=== PATIENT | female | born 1960 | race Caucasian/White ===

== ENCOUNTER → 2020-11-04 15:13 | Outpatient (CLI) | payer BC, SELFPAY | PROVIDERS: Visit Provider Family Medicine | DX: N39.0 Urinary tract infection, site not specified (principal) | CPT/HCPCS: 87086 ==

== ENCOUNTER → 2021-02-02 17:45 | Outpatient (CLI) | payer BC, SELFPAY ==
[2021-02-02 18:23] LABS: Basophils % 0.4 % (0.1-2.0); Eosinophils % 0.6 % (0.1-12.0); Hematocrit 42.2 % (37.0-47.0); Hemoglobin 14.3 g/dL (12.2-16.2); Lymphocytes % 30.5 % (10-50); Mean Corpuscular HGB Conc 33.9 g/dL (31.8-35.4); Mean Corpuscular Hemoglobin 30.5 pg (27.0-31.2); Mean Corpuscular Volume 89.9 fl (81-99); Mean Platelet Volume 7.6 fl (7.4-10.4); Monocytes # 0.3 K/mm3 (0.1-1.0); Monocytes % 4.5 % (1.7-9.3); Neutrophils # 4.2 K/mm3 (1.8-7.8); Platelet Count 306 K/mm3 (142-424); Red Blood Count 4.69 M/mm3 (4.20-5.40); Red Cell Distribution Width 12.9 % (11.5-17.5); White Blood Count 6.6 K/mm3 (4.8-10.8)
[2021-02-02 19:02] LABS: Alanine Aminotransferase 26 U/L (12-78); Albumin Level 4.5 g/dl (3.5-5.0); Albumin/Globulin Ratio 1.7 (1.1-1.8); Alkaline Phosphatase 81 U/L (38-126); Anion Gap 15.9 mEq/L (5-15); Aspartate Amino Transferase 28 U/L (14-36); Bilirubin,Total 0.4 mg/dl (0.2-1.3); Blood Urea Nitrogen 11 mg/dl (7-17); Carbon Dioxide 25 mmol/L (22.0-30.0); Chloride 100 mmol/L (98-107); Chol/HDL Ratio 4.7 (1-3.5); Cholesterol 261 mg/dl (140-200); Estimated Glomerular Filt Rate 101 ml/min (>60); GFR (African American) 123 ML/MIN (>60); Globulin 2.7 g/dL (1.3-3.2); Glucose 149 mg/dl (74-100); HDL Cholesterol 55 mg/dl (40-60); Potassium 3.9 mmoL/L (3.5-5.1); Sodium 137 mmol/L (136-145); Total Protein,Serum 7.2 g/dl (6.3-8.2); Triglycerides 269 mg/dl (30-150); VLDL Cholesterol 54 mg/dL (0-40)
[2021-02-02 19:14] LABS: Direct LDL Cholesterol 174.65 mg/dL (100-129)
[2021-02-02 19:20] LABS: T4 (Thyroxine) 12.3 ug/dl (5.53-11.0)
[2021-02-02 19:33] LABS: Thyroid Stimulating Hormone 0.83 uIU/mL (0.465-4.68)
== END ==
PROVIDERS: Visit Provider Family Medicine
DX: E03.9 Hypothyroidism, unspecified (principal); E78.5 Hyperlipidemia, unspecified; I10 Essential (primary) hypertension
CPT/HCPCS: 80053; 80061; 84436; 84443; 85025

== ENCOUNTER → 2021-02-17 13:55 | Outpatient (CLI) | payer BC, SELFPAY ==
[2021-02-17 14:42] LABS: Hemoglobin A1C 5.5 % (4.0-6.0)
== END ==
PROVIDERS: Visit Provider Family Medicine
DX: R73.9 Hyperglycemia, unspecified (principal)
CPT/HCPCS: 83036

== ENCOUNTER → 2023-04-25 23:49 | Outpatient (CLI) | payer BC, SELFPAY ==
[2023-04-25 19:17] LABS: Basophils % 0.4 % (0.1-2.0); Eosinophils # 0.1 K/mm3 (0.0-0.4); Hematocrit 45.1 % (37.0-47.0); Hemoglobin 14.5 g/dL (12.2-16.2); Lymphocytes # 1.8 K/mm3 (0.7-4.5); Lymphocytes % 32.8 % (10-50); Mean Corpuscular HGB Conc 32.2 g/dL (31.8-35.4); Mean Corpuscular Hemoglobin 30.2 pg (27.0-31.2); Mean Platelet Volume 9.4 fl (7.4-10.4); Monocytes # 0.3 K/mm3 (0.1-1.0); Monocytes % 5.4 % (1.7-9.3); Neutrophils # 3.3 K/mm3 (1.8-7.8); Neutrophils % 60.4 % (37.0-80.0); Platelet Count 320 K/mm3 (142-424); Red Blood Count 4.79 M/mm3 (4.20-5.40); Red Cell Distribution Width 13.1 % (11.5-17.5); White Blood Count 5.4 K/mm3 (4.8-10.8)
[2023-04-25 19:24] LABS: Alanine Aminotransferase 23 U/L (12-78); Albumin Level 4.5 g/dl (3.5-5.0); Albumin/Globulin Ratio 1.6 (1.1-1.8); Alkaline Phosphatase 70 U/L (38-126); Anion Gap 13.4 mEq/L (5-15); Aspartate Amino Transferase 29 U/L (14-36); Bilirubin,Total 0.5 mg/dl (0.2-1.3); Blood Urea Nitrogen 13 mg/dl (7-17); Calcium 9.2 mg/dl (8.4-10.2); Carbon Dioxide 29 mmol/L (22.0-30.0); Chloride 102 mmol/L (98-107); Cholesterol 251 mg/dl (140-200); Estimated Glomerular Filt Rate 101 ml/min (>60); GFR (African American) 122 ML/MIN (>60); Globulin 2.9 g/dL (1.3-3.2); Glucose 96 mg/dl (74-100); HDL Cholesterol 50 mg/dl (40-60); Potassium 4.4 mmoL/L (3.5-5.1); Sodium 140 mmol/L (136-145); Total Protein,Serum 7.4 g/dl (6.3-8.2); Triglycerides 173 mg/dl (30-150); VLDL Cholesterol 35 mg/dL (0-40)
[2023-04-25 19:35] LABS: Direct LDL Cholesterol 154.35 mg/dL (100-129)
[2023-04-25 19:55] LABS: Thyroid Stimulating Hormone 1.39 uIU/mL (0.465-4.68)
[2023-05-04 00:08] LABS: 1,25 Dihydroxy Vitamin D 75 pg/mL (.); 1,25-Dihydroxy, Vitamin D-2 <10 pg/mL (.); 1,25-Dihydroxy, Vitamin D-3 72 pg/mL (.)
== END ==
PROVIDERS: PCP Family Medicine; Visit Provider Family Medicine
DX: E78.5 Hyperlipidemia, unspecified (principal); E67.3 Hypervitaminosis D; Z79.899 Other long term (current) drug therapy
CPT/HCPCS: 80053; 80061; 82652; 84443; 85025

== ENCOUNTER 2024-02-22 10:20 | Outpatient (CLI) | payer MEDICARE, SELFPAY ==
[2024-02-22 19:05] LABS: Chol/HDL Ratio 4.1 (1-3.5); Cholesterol 209 mg/dl (140-200); HDL Cholesterol 51 mg/dl (40-60); Triglycerides 243 mg/dl (30-150); VLDL Cholesterol 49 mg/dL (0-40)
[2024-02-22 19:16] LABS: Direct LDL Cholesterol 124.66 mg/dL (100-129)
== END 2024-02-22 23:59 | disposition home or self-care (01) ==
LOC: LAB.DROPOF 02-23 08:53
PROVIDERS: PCP Family Medicine; Visit Provider Family Medicine
DX: E78.5 Hyperlipidemia, unspecified (principal)
CPT/HCPCS: 80061

== ENCOUNTER 2024-11-21 11:07 | Outpatient (CLI) | payer MEDICARE, SELFPAY | END 2024-11-21 23:59 | disposition home or self-care (01) | LOC: LAB.DROPOF 11-22 10:59 | PROVIDERS: PCP Nurse Practitioner; Visit Provider Nurse Practitioner | DX: R35.0 Frequency of micturition (principal) | CPT/HCPCS: 87086 ==

== ENCOUNTER 2025-04-08 07:56 | Day surgery (SDC) | payer MEDICARE, SELFPAY ==
[2025-04-04 15:02] VITALS: BMI 23.0
[2025-04-08] VITALS (7 sets, daily range): BP systolic 106–143; BP diastolic 57–81; PULSE 62–78; RESP 18; TEMP 36.1–36.6; O2SAT 96–100
--- NOTE | 2025-04-08 08:27 | EXP.HP ---
History of Present Illness *Admission Date: 04/08/25 *History of present illness: Mrs. Borrego is a 64-year-old female who is here for screening colonoscopy. The patient's last colonoscopy was more than a decade ago. The examination is deemed medically necessary for screening colonoscopy. The patient has been seen, interviewed and examined prior to the procedure by both myself and the anesthesia provider. [facility] Disclaimer: The information contained in this section may have been updated after the patient was seen, as this information can be updated by other users. Medical History (Updated 04/08/25 @ 09:53 by Aaron Pitts II, MD) Hyperlipemia Hypothyroid Hypertension Urinary frequency Anxiety Surgical History History of thyroid surgery Family History Mother Cancer Social History Smoking Status: Former smoker years smoked: 5 smoking status stop date: 1987 alcohol intake: never substance use type: denies use current occupational status: retired Travel in the last 8 weeks?: None household members: spouse housing: house Have you lived/traveled outside US in past 30 days?: No Contact w/someone who lives/traveled outside US past 30 days?: No Exposure to someone with infectious disease in past 14 days?: No Do you have a fever (greater than 100.4 F or 38 C)?: No Have you tested positive for COVID-19?: No Exposed to someone with COVID-19 in past 14 days?: No Do you have a sore throat?: No Do you have a cough?: No Do you have any weakness?: No Do you have any diarrhea?: No Are you experiencing any unusual bleeding?: No Do you have any muscle aches/pain?: No Do you have any abdominal pain?: No Are you experiencing loss of taste or smell?: No Other Medical History Have you received the Pneumonia Vaccine: No Review of Systems Review of Systems Review of systems (narrative): Negative *Cardiovascular Comments: Negative *Gastrointestinal Comments: Negative *Genitourinary Comments: Negative *Musculoskeletal Comments: Negative *Neurologic Comments: Negative Meds Home Medications and Allergies Home Medications ?Medication ?Instructions ?Recorded ?Confirmed ?Type cholecalciferol (vitamin D3) 125 125 mcg PO DAILY #90 caps 04/25/23 04/08/25 Rx mcg (5,000 unit) capsule metoprolol succinate 50 mg 50 mg PO DAILY #90 tabs 04/25/23 04/08/25 Rx tablet,extended release 24 hr (Toprol XL) alendronate 70 mg tablet 70 mg PO WEEKLY 02/22/24 04/08/25 History cyanocobalamin (vitamin B-12) 1,000 mcg PO QDAY 02/22/24 04/08/25 History 1,000 mcg capsule rivastigmine 9.5 mg/24 hour 9.5 mg topical DAILY 11/21/24 04/08/25 History transdermal patch (Exelon Patch) clobetasol 0.05 % topical cream 1 applic topical DAILY #45 grams 01/09/25 04/08/25 Rx levothyroxine 75 mcg tablet 75 mcg PO DAILY 04/04/25 04/08/25 History (Synthroid) ezetimibe 10 mg tablet (Zetia) 10 mg PO WEEKLY 04/08/25 04/08/25 History pantoprazole 40 mg tablet,delayed 40 mg PO DAILY PRN Acid Reflux 04/08/25 04/08/25 History release (Protonix) rosuvastatin 5 mg tablet (Crestor) 5 mg PO .twice weekly Cholesterol 04/08/25 04/08/25 History venlafaxine 75 mg capsule,extended 75 mg PO BID 04/08/25 04/08/25 History release 24 hr (Effexor XR) New Prescriptions to Start Prescriptions: Allergies Allergy/AdvReac Type Severity Reaction Status Date / Time atorvastatin (From Lipitor) Allergy Nausea Verified 04/08/25 08:35 Cephalosporins Allergy Nausea Verified 04/08/25 08:35 Penicillins Allergy Nausea Verified 04/08/25 08:35 azithromycin AdvReac Nausea Verified 04/08/25 08:35 Exam *Routine HEENT Exam Head: Present normocephalic Eye: Present EOMI and PERRL ENT: Present mucous membranes moist *Routine Neck Exam Neck: Present supple *Routine Respiratory Exam Respiratory: Present CTA bilaterally *Routine Cardiovascular Exam Cardiovascular: Present RRR *Routine Abdominal Exam Abdominal: Present soft and normoactive bowel sounds; Absent tenderness *Routine Rectal Exam Rectal:: deferred *Routine Genitalia Exam Genitalia:: deferred *Routine Extremities Exam Extremities: Absent cyanosis, clubbing or edema *Routine Skin Exam Skin: Present warm; Absent rash *Routine Neurological Exam Neurological: Present alert and oriented X3 Assessment and Plan *Assessment and plan (1) Screening for colon cancer: Status: Acute Category: Medical Code(s): Z12.11 - Encounter for screening for malignant neoplasm of colon (2) Submucosal colonic leiomyoma: Status: Acute Category: Medical Code(s): D21.4 - Benign neoplasm of connective and other soft tissue of abdomen Plan A/P: 1. Screening for colon cancer is the preprocedural diagnosis. The patient's last colonoscopy was more than a decade ago. She does have a history of a colonic leiomyoma the patient will be anesthetized/sedated using MAC sedation. The patient has been seen and examined. Cardiac and lung assessment prior to the examination is stable. Proceed with planned screening colonoscopy.
--- NOTE | 2025-04-08 09:31 | P.PNANES_ITS ---
[facility] Disclaimer: The information contained in this section may have been updated after the patient was seen, as this information can be updated by other users. Medical History (Updated 04/08/25 @ 08:29 by Aaron Pitts II, MD) Hyperlipemia Hypothyroid Hypertension Urinary frequency Anxiety Surgical History History of thyroid surgery Family History Mother Cancer Social History Smoking Status: Former smoker years smoked: 5 smoking status stop date: 1987 alcohol intake: never substance use type: denies use current occupational status: retired Travel in the last 8 weeks?: None household members: spouse housing: house Have you lived/traveled outside US in past 30 days?: No Contact w/someone who lives/traveled outside US past 30 days?: No Exposure to someone with infectious disease in past 14 days?: No Do you have a fever (greater than 100.4 F or 38 C)?: No Have you tested positive for COVID-19?: No Exposed to someone with COVID-19 in past 14 days?: No Do you have a sore throat?: No Do you have a cough?: No Do you have any weakness?: No Do you have any diarrhea?: No Are you experiencing any unusual bleeding?: No Do you have any muscle aches/pain?: No Do you have any abdominal pain?: No Are you experiencing loss of taste or smell?: No [facility] Anesthesia Checklist Patient Identification Patient Identification: Arm Band Structural Data Admitted From: Home Planned Operative Procedure/s: Colonoscopy Consent for Planned Operative Procedure(s) Verified: Yes Verified Documents: Surgical Consent and History and Physical NPO Status Verified Time NPO: 05:30 (finished prep) Additional verifications Anesthesia Reactions: No Airway Assessment Mallampati Score:: Class II C-Spine Mobility Assessed: Yes TMJ Mobility Assessed: Yes Dentition: Good Dentition Neurological Assessment Level of Consciousness: Awake, Alert and Appropriate Anesthesia Plan Anesthesia Risk discussed: Yes Anesthesia Plan: Verified ASA Class: II Anesthesia Type: MAC
--- NOTE | 2025-04-08 09:54 | P.PCN_ITS ---
[facility] Procedure Note Date: 04/08/25 Time: 10:07 Procedure Note:: Colonoscopy Procedure Report: Colonoscopy with cold snare polypectomy Endoscopist: Aaron Pitts II, MD Referring physician: Neil Rubin MD Date of Procedure: April 08, 2025 Equipment: Olympus [id number] adult colonoscope Sedation: MAC sedation Indication: Mrs. Borrego is a 64-year-old female who is here for screening colonoscopy. Her last colonoscopy was more than a decade ago. The patient does state that she had a colonic leiomyoma years ago. She reports no rectal bleeding, abdominal pain, weight loss or change in bowel habits. She reports no family history of colon cancer. Procedure: Prior to the procedure, a history and physical exam was performed, and patient's medications and allergies were reviewed. The risks, benefits and alternatives of the sedation and procedure were discussed with the patient. All questions were answered and informed consent was obtained. The patient was brought to the procedure room. Patient identification and proposed procedure were verified by the physician and the nurse. The patient was placed in a left lateral decubitus position and the scope was passed under direct vision. Throughout the procedure, the patient's blood pressure, pulse, and oxygen saturations were monitored continuously. The colonoscopy was accomplished without difficulty. The patient tolerated the procedure well. Findings: On digital rectal examination there was normal rectal tone. There were no external hemorrhoids. The colonoscope was introduced through the anal canal to the rectum and advanced to the cecum. The ileocecal valve and appendiceal orifice were identified. The scope was advanced a short distance into the ileum which appeared grossly normal. The scope was then withdrawn into the colon. The cecum, ascending and transverse colon and mucosa were grossly normal. There were 3 polyps (descending x 1 (4 mm) and rectosigmoid x 2 (3 and 4 mm)). These were all removed via cold snare polypectomy. There were scattered diverticuli throughout the descending and sigmoid colon (LEFT colon). The rectum itself was normal. Upon retroflexion within the rectum there were grade 1-2 internal hemorrhoids. The preparation was excellent throughout with [place] Preparation Score of 9. The cecal time was 12 minutes. Impression: 1. Diminutive colonic polyps x 3 2. Left-sided diverticulosis 3. Grade 1-2 internal hemorrhoids Plan: I will follow-up the polyp histology and recommend repeat surveillance colonoscopy again in 5 to 10 years based upon the pathology. I would encourage psyllium bulking fiber supplementation on a maintenance basis.
== END 2025-04-08 11:10 | disposition home or self-care (01) ==
PROVIDERS: PCP Family Medicine; Visit Provider Internal Medicine Gastroenterology
PROC: 0DJD8ZZ Inspection of Lower Intestinal Tract, Via Natural or Artificial Opening Endoscopic (ICD-10-PCS; CPT 45378; principal; 2025-04-08 09:30)
DX: Z12.11 Encounter for screening for malignant neoplasm of colon (principal); D12.5 Benign neoplasm of sigmoid colon; D12.8 Benign neoplasm of rectum; K57.90 Diverticulosis of intestine, part unspecified, without perforation or abscess without bleeding; K64.0 First degree hemorrhoids; K64.1 Second degree hemorrhoids; E78.5 Hyperlipidemia, unspecified; I10 Essential (primary) hypertension; E03.9 Hypothyroidism, unspecified; Z87.891 Personal history of nicotine dependence; Z88.1 Allergy status to other antibiotic agents; Z88.8 Allergy status to other drugs, medicaments and biological substances; Z79.899 Other long term (current) drug therapy
CPT/HCPCS: 45385; J2003; J2704

== ENCOUNTER 2025-05-02 09:48 | Outpatient (CLI) | payer MEDICARE, SELFPAY ==
--- OUTSIDE RECORDS SUMMARY | 2017-03-20 20:00 | XMS_ITS | Continuity of Care Document ---
Author Organization [facility] Address [address] [place] [address] Phone Care Team Providers Care Test Preparer Name Role Phone Taras Peters MD Unavailable Unavailable Procedures Procedure Date Foot sidney/prepreg composite Beltran's Ft Plate Office/outpatient visit,[facility] 2016 X-ray exam of foot, complete X-ray exam of foot, complete Advance Directives Directive Yes / No Effective Date File Name No Information Encounters Encounter Description Practice Location Reason(s) For Visit Diagnoses Date Provider Providers Copied on Encounter [facility], [facility] [address] [place], [place], [facility], tel:[phone] 00 [facility] No Information 7 Fran Grajeda. [address], [place], [id number] , [place]. tel:[phone] [facility], [facility] [address] [place], [place], [facility], tel:[phone] 00 [facility] No Information 7 Fran Brown [address], [place], [id number] , [place]. tel:[phone] Office/outpat ient visit,[facility], [facility] [address] [place], [place], [facility], tel:[phone] [facility] No Information 7 Fran Grajeda. [address] [place], [place], [place], [id number] , [place]. tel:[phone] Family History Family Member Type Diagnosis Age At Onset No Information Payers Payer name Insurance type Covered constitution party ID Authoriza tion(s) No Information Social History Type Description Quantity Date Captured Comments Sex Female Smoking Status No Information Chief Complaint And Reason For Visit No Information Reason For Referral Reason For Referral No Information History Of Present Illness Encounter Date Complaint History Of Prese nt Illness No Information Functional Status Date Functional Assessmen t No Information Instructions Date Instruction Additional Infor mation No Information Assessments Type Assessment Date No Information Patient Care Teams Name Effective Dates (start - stop) Status Members No Information
--- OUTSIDE RECORDS SUMMARY | 2024-03-17 05:00 | XMS_ITS ---
Author Organization [facility] Address [address] [place] [address] Care Team Providers Care Sales Service Assistant Name Role Phone Cindy Plata Unavailable [phone] Migration, Provider Unavailable Unavailable Allergies Allergen (clinical drug ingredient) Drug/Non Drug Allergy documented on EMR Reaction Allergy Type Onset Date Status Medications: CEPHALOSPORINS (uncoded) Unspecified Allergy Active Substance with penicillin structure and antibacterial mechanism of action (substance) Medications: PENICILLINS (uncoded) Unspecified Allergy Active Medications: Valium (uncoded) Unspecified Allergy Active Medications Medication SIG (Take, Route, Fr equency, Duration) Notes Start Date End Date Status Metoprolol Succinate ER 05/27/2017 Active Venlafaxine HCl ER 04/27/2017 Active Protonix 1 tablet oral QD Act olive Synthroid 05/23/2017 Active Social History Tobacco Use: Social History Observation Description Date Smoking Status WARNING: Information temporarily unavailable Sex Assigned At : Social History Observation Description Sex Assigned At Female Social History Drugs/Alcohol: Social Info Question Answer Notes Alcohol Screen Did you have a drink containing alcohol in the past year? Never Household: Social Info Question Answer Notes Household Marital status: Tobacco Use: Social Info Question Answer Notes Tobacco Control (Standard) Tobacco use: Former Additional Details Category Social Info Options Details Miscellaneous: Exercise: Heavy Amount of Exercise (4 or more times weekly) Occupation: Homemaker Travel outside of the [place]: Travel History: Uses seat belts Encounters Encounter Location Date Provider Diagnosis [facility] [address] [place] [address] 03/17/2024 Provider Migration Plan Of Treatment No Information Progress Notes * Aminata BORREGO TDOB:1960 (64 yo F)Acc No.[id number]:03/17/2024 Patient: Aminata ESCOBAR :1960 A ge:63 Y S ex:Female Address:[facility] [place], [address] Subjective: * Chief Complaints: * Medical History: 7 [place]: Cholesterol Screen - Yes 2016 wnl 7 [place]: Colonoscopy/Sigmoidoscopy - Yes 2013 poylps 7 [place]: Sexually active - Yes 7 [place]: Self breast exam- yes 7 [place]: Dairy Product Use - Yes 7 [place]: Mammogram 2017 ok; 09/17/19 Endometriosis High blood pressure Thyroid disorder High cholesterol Bowel trouble Anxiety Depression *NO SIGNIFICANT GENETIC HISTORY FHQ administered - negative Vitamin D3 take 2 capsules by oral route daily. Ezetimibe Rosuvastatin * OB History: P regnancy History (GPA) T otal Pregnancies 6 , F ull Term 2 , P remature?0, A B. Induced 0 , A B. Spontaneous 4 , E ctopics 0 , M ultiple Births 0 , L iving 2 . G P G ravida: 6 , P sara: 2 . P regnancy # 1: B irthDate :07/03[birth year]1988 BirthLbs :7 Comment : Weight: 7 DeliveryType :Vaginal GA :38 LaborLength :8 PTL :N Sex :M. P regnancy # 2: B irthDate :12/26/1989 BirthLbs :9 Comment : Weight: 9 DeliveryType :Vaginal GA :37 PTL :N Sex :M. * Surgical History: Breast biopsy section Laparoscopy Thyroidectomy-partial right * Family History: F amily History Verified.. Aunt: Breast Cancer, family HX, Father: Asthma, Diabetes Mellitus, Type Unspecified, Family history of thyroid disease, Hypertension, Benign Essential, Hypercholesterolemia (Isolated), Mother: Pancreatic Neoplasm, Malignant, Hypercholesterolemia (Isolated), Anxiety Disorder, Generalized. * Social History: T obacco Use: T obacco Control (Standard) T obacco use: F ormer. D rugs/Alcohol: A lcohol Screen D id you have a drink containing alcohol in the past year? N ever.? M iscellaneous: E xercise: Heavy Amount of Exercise (4 or more times weekly). Occupation: Homemaker. Travel outside of the [place]: Travel History: Uses seat belts. H ousehold: H ousehold M arital status: . * Medications: T akingVenlafaxine HCl ER Synthroid Protonix 1 tablet oral QD Metoprolol Succinate ER Taking Venlafaxine HCl ER Taking Synthroid Taking Protonix 1 tablet oral QD Taking Metoprolol Succinate ER * Allergies: M edications: PENICILLINS: Unspecified - AllergyMedications: CEPHALOSPORINS: Unspecified - AllergyMedications: Valium: Unspecified - AllergyyesAllergies Verified. * * Date:
--- OUTSIDE RECORDS SUMMARY | 2025-04-01 09:00 | XMS_ITS | Encounter Summary ---
Author Organization [facility] Address [address] [place] [id number] Care Team Providers Care Beef Specialist Name Role Phone Alexis Rubin MD Primary Care Provider [phone] Source Comments This information has been disclosed to you from confidential records protectfrom disclosure by state law. You shall make no further disclosure of thisinformation without the specific, written, and informed release of theindividual to whom it pertains, or as otherwise permitted by law. A generalauthorization for the release of medical or other information is not sufficientfor the purposes of the release of HIV test results or diagnoses. [id number] Health Encounter Details Date Type Department Care Team (Late st Contact Info) Description 04/01/2025 9:00 AM EDT Office Visit [facility] Neurology at [address] [place] [address] Mike Cisneros MD [address] [employer] [facility] [address] [place] [address] Maryanne Mario MD [address] [place] [address] Mild early onset Alzheimer's dementia, unspecified whether behavioral, psychotic, or mood disturbance or anxiety (CMS-HCC) (Primary Dx); VARUN (obstructive sleep apnea) Social History Tobacco Use Types Packs/Day Years Used Date Smoking Tobacco: Former Cigarettes Q uit: 06/16/1989 Tobacco Cessation:Counseling Given: Not Answered Comments:06/05/2008 Alcohol Use Standard Drinks/Week Comments No 0 (1 standard drink = 0.6 oz pur e alcohol) 06/05/2008 PHQ-2 Answer Date Recorded PHQ-2 Total Score 0 09/18/2024 Yearly Questionnaire Answer Date Record ed Do you need any assistance w ith obtaining housing, meals, medication, transportation or medical equipment? No 09/18 Assistance needed for: Not on file 5 Yearly Questionnaire Answer Date Record ed Do you need any assistance w ith obtaining housing, meals, medication, transportation or medical equipment? No 09/18 Assistance needed for: Not on file Yearly Questionnaire Answer Date Record ed Do you need any assistance w ith obtaining housing, meals, medication, transportation or medical equipment? No 09/18 Assistance needed for: Not on file 5 Comments No Sex and Gender Information Value Date Recorded Sex Assigned at Not on file Legal Sex Female 4:08 PM EST Gender Identity Not on file Sexual Orientation Not on file documented as of this encounter Last Filed Vital Signs Vital Sign Reading Time Taken Comments Blood Pressure 155/80 04/01/2025 10:16 AM EDT Pulse 78 04/01/2025 10:16 AM EDT Temperature - - Respiratory Rate - - Oxygen Saturation 98% 04/01/2025 10:16 AM EDT Inhaled Oxygen Concentration 98% 04/01/2025 1 0:16 AM EDT Weight 63 kg (139 lb) 04/01/2025 10:16 AM EDT Height - - Body Mass Index 25.84 09/26/2024 10:00 AM EST documented in this encounter Patient Instructions * Patient Instructions* Maryanne Mario MD - 04/01/2025 9:00 AM EDT Plan: - Continue rivastigimine 9.5mg daily patch - Continue CPAP for sleep apnea Sleep medicine appointment in June - evaluation - Consider adding a new medication to further help anxiety The medication I would think of is buspirone (Buspar) - information attached Talk about this idea with Dr. Rubin as well It can increase the venlafaxine levels so we may want to make adjustments Things you can do to keep your brain healthy: Regular physical exercise (at least 30 minutes a day where you get your heart rate up) A healthy diet (like the Mediterranean or MIND diet) Regular socialization Cognitive activity - this needs to be something that you enjoy doing. If it feels like a chore or homework, it is not providing you the same kind of benefits as something that brings you azeem. This can be all kinds of things such as puzzles, board games, reading, learning an instrument, learning a language, art, dance, etc. Good sleep. It is important to practice good sleep habits and to treat sleep disorders if they are present. Reduce cerebrovascular risk factors. Make sure you are working with your primary care doctor to ensure blood pressure, cholesterol, and blood sugar are under good control. Recommendations for preventing/improving Exelon patch skin irritation: 1.) Follow a regular rotation schedule for the patch and wash the area well with soap and water ONLY (no rubbing alcohol, hydrogen peroxide, etc) 2.) Use a lipid-based emollient for irritant dermatitis such as Aquaphor or Eucerin (most common rash, only in the area where the patch was placed) or pre- and post-treatment topical corticosteroids for allergic dermatitis (spreads beyond the area of the patch) 3.) Minimize the use of harsh soaps 4.) Avoid recently shaven or damaged areas of skin 5.) Carefully remove the patch after use Social work contact: Social work support to you and your family ANYTIME that you have concerns. Please don't hesitate to contact Urszula Henry at: [phone] [email or web address] * Attachments The following attachments cannot be sent through Care Everywhere. * Buspirone Tablets (Belarusian) documented in this encounter Progress Notes * Maryanne Mario MD - 04/01/2025 9:00 AM EDT Images from the original note were not included. [facility] Neurology Department Behavioral Neurology [facility] - Return Visit Subjective HPI: Aminata Borrego is a 64 y.o. White or R handed female with 14 years of education and pertinent PMH of hypothyroidism, anxiety, depression, hypertension, hyperlipidemia presenting for follow up of Alzheimers disease diagnosed by me in 05/2024 via FDGPET and serum labs. The patient firstdeveloped symptoms in 2021, described as repeating questions/stories and word finding difficulties.She is accompanied to this visit by , Chris, who provides collateral information. Last visit: At our last visit, diagnosis of AD and VARUN - started on rivastigmine. Interval history: Since our last visit, Slight decline noticed Rivastigmine is tolerated - but slight skin irritation Problem based history below: Cognitive: Worsened short term recall More repetition in questions Some decreased awareness current events - but relatively intact Some distortion of time - thinking he has been gone for hours instead of minutes Speech/Language: -Word finding difficulties: occasional Circumlocutions present initiating conversations Neuropsychiatric/behavioral: -Mood: More frustrated with memory changes Increased irritability -Hallucinations: none/denied Increased preference for sweets Motor: -Gait changes: no changes -Falls: denied Sleep: -Quality: good, less dreaming with CPAP Tolerating CPAP well Napping during day Functional status: -Lives with: Care for adult disabled son -Driving: independent No direct concerns from family/patient -Would be able to call 911 in the case of an fire - Independent in activities outside the home: yes - Can be taken to functions outside the home: yes - Participates in social functions in the home: yes 04/01/2025 9:28 AM Memory ADL/IADL Mobility Independent Toileting Independent Incontinence? Normal complete control Bathing Independent Dressing Independent Eating Independent Small sums of money (e.g., make change, leave a small tip) Independent Complicated financial or business transactions (e.g., balance checkbook, pay bills) Independent spouse and patient do this together Shopping and creating shopping list Independent may be buying duplicated items a bit more Meal preparation Independent doing this together Laundry Independent Using phone Independent Computer/Electronics Independent Housekeeping Independent Medication management Independent may ask spouse more questions, some oversight by spouse Is he/she driving? Yes Are there problems or risks because of poor thinking while driving? No prefers for spouse to drive, only driving local places, did not completed driving eval Transportation Independent Ability to independently carry out activities outside the home Independent Others: -Vision changes: following with eye doctor for eye changes; cataracts Activities/Work: - Still volunteering - Going to [employer] 1.5 miles - Goes out to dinner with girl friends - Drives son to work ROS Negative except as documented in HPI Medications Current Outpatient Medications Medication Instructions alendronate (FOSAMAX) 70 MG tablet 1 tablet, Weekly atorvastatin (LIPITOR) 10 MG tablet Take by mouth. cholecalciferol, vitamin D3, (VITAMIN D3) 5,000 unit Tab Take by mouth. ezetimibe (ZETIA) 10 mg tablet 1 tablet, Every other day levothyroxine (SYNTHROID) 75 mcg, Daily metoprolol succinate (TOPROL-XL) 50 MG 24 hr tablet Take by mouth. pantoprazole (PROTONIX) 40 mg, As needed rivastigmine (EXELON) 9.5 mg/[address] 1 PATCH ON CLEAN DRY INTACT SKIN DAILY IN THE MORNING, REMOVE OLD PATCHES. rosuvastatin (CRESTOR) 5 MG tablet Take by mouth. venlafaxine (EFFEXOR-XR) 75 mg, 2 times daily Physical Exam: Vitals: 04/01/25 1016 BP: 155/80 Pulse: 78 SpO2: 98% General Appearance: age appropriate, sitting up in chair in no distress Speech: No evidence of dysarthria Language: No significant word finding pauses in spontaneous speech Repetition intact Cranial Nerve: EOM intact, no nystagmus or square wave jerks VF full to confrontation to finger counting No facial asymmetry Tongue protrudes midline No evidence of nonverbal oral apraxia noted Motor: Normal tone throughout, no fasciculations or atrophy noted R L R L Deltoid 5 5 Hip Flex 5 5 Biceps 5 5 Knee Ext 5 5 Triceps 5 5 Knee Flex 5 5 Sensory: Sensation intact to light touch throughout Coordination: AMRs BUE: normal rate and rhythm, symmetric bilaterally Toe tapping and stomping normal and symmetric CORNELIO: normal and symmetric Tremor: none Able to stand from seated position with arms crossed without difficulty Gait: Normal stride length, heel strike, and arm swing. DATA Labs: Lab Results Component Value Date GLUCOSE 153 (H) 06/20/2012 BUN 6 (L) 06/20/2012 CO2 25 06/20/2012 CREATININE 0.51 06/20/2012 K 4.0 06/20/2012 NA 139 06/20/2012 CL 102 06/20/2012 CALCIUM 6.7 (L) 06/20/2012 Lab Results Component Value Date WBC 5.3 07/20/2012 HGB 12.3 07/20/2012 HCT 37.7 07/20/2012 MCV 89 07/20/2012 PLT 301 07/20/2012 No results found for: PTT , INR No results found for: LIPIDCOMM , CHOLTOT , TRIG , HDL , CHOLHDL , LDL Lab Results Component Value Date HGBA1C 5.6 03/22/2024 Lab Results Component Value Date OBEEEFPE64 1,488 (H) 03/22/2024 Lab Results Component Value Date TSH 3.79 03/22/2024 Outside labs reviwed as: Serum ATN profile previously completed at [facility]. Results obtained for review revealing low Abeta 42/40 ratio (0.492) and high T-rachel 181 (1.88). The findings are consistent with a diagnosis of Alzheimer's disease. Scans: An FDG-PET brain scan was performed and reviewed personally that revealed R>L parietal and posterior temporal hypometabolism. This pattern is suggestive of Alzheimer's disease. MRI head: Independently reviewed with mild scattered white matter disease, mild parietal atrophy, 1R cerebellar microhemorrhage Anticholinergic burden score: 2 (pantoprazole, venlafaxine) CO-MORBIDITIES : VASCULAR: hyperlipidemia and hypertension Body mass index is 25.84 kg/m??. Pre Obese: 25 - 29.9 ANTICHOLINERGIC BURDEN: 2 (pantoprazole, venlafaxine) PSYCHIATRIC: prominent anxiety - improved on venlafaxine, consider additional agent SLEEP: Sleep diagnosis: VARUN, polysomongram 04/2024 AHI 13.4 (3%) AUTOIMMUNE PARANEOPLASTIC: none LEARNING DISABILITIES/ADD: none CONTACT SPORTS/HEAD INJURY: none FAMILY HISTORY: memory issues fater late 70s PARKINSON'S prominent anxiety SENSORY: cataracts/eye changes ALZHEIMER'S: FDGPET R>L parietal and posterior temporal; serum biomarker supported (low abeta 42/40, elevated [id number]) NEOPLASTIC: none ASSESSMENT/PLAN : #Mild early onset Alzheimer's disease #Anxiety #Obstructive sleep apnea Patient presented with around 2 year history of primarily amnestic complaints with repeating questions and conversations and trouble recalling conversations. Notably prominent longstanding depression/anxiety with recent increase in symptoms however better controlled on increased venlafaxine. FDGPETwith R>L parietal and posterior temporal hypometabolism, serum ATN consistent with Alzheimers disease (low amyloid, high ptau). Donepezil not tolerated due to GI side effects, namenda reduced and discontinued at prior visit as not currently indicated at clinical staging. CDR 0.5, SOB3. Infusion therapy previously discussed; they were not interested in therapy given side effects. VARUN, compliant with CPAP. Getting leaks at time. Monitor and discuss with sleep at followup Plan: Continue rivastigmine patch Continue CPAP for VARUN Driving evaluation - discussed, options provided Consider adding medication for additional benefit for anxiety. Discuss buspirone with PCP as well Could consider genesight testing All questions answered. They appreciated the evaluation and agreed with the plan. I personally spent a total of 38 minutes in counseling and discussion with the patient as well as 10 minutes reviewing the chart, documentation, and coordination of care as described above. This doesnot include the time spent interpreting the neuropsychological testing data. Parts of this note were reviewed and copied forward (with edits) from a previous note. I have reviewed and updated the history, physical exam, data, assessment, and plan of the note so that it reflects my current evaluation and management of the patient. Return in about 1 year (around 04/01/2026) for testing. Maryanne Mario MD Behavioral Neurology 04/01/2025 11:18 AM * Urszula Henry [facility] - 04/01/2025 9:00 AM EDT Images from the original note were not included. Follow Up Patient/Caregiver Assessment Present at appointment: Spouse Chris Date of Last Visit: 05/28/24 Diagnosis: EOSAD (05/2024); VARUN Family Support: 2 sons: Chris-[place]; Leonardo-disabled and lives with patient and spouse Residence: Lives with spouse and adult disabled son. Advance Directives: Not completed forms given to spouse Overall changes since last visit: Tolerating Rivastigamine Patch fairly well it does irritate her skin. Spouse reports some slight changes: more forgetful and increased repetition of questions. Reduced awareness of current events but has decent awareness. Doesn't really watch the news. Gets distracted very easily. Occasionally may not finish one task before starting another. Some distortion with perception of time Changes in Mood: Increased frustration with short term recall which causes her to feel down. Some irritability. Doesn't like spouse out of her sight for very long. Changes in Behavior: No new behaviors. No hallucinations/delusions/paranoia Changes in language and communication: No hearing issues. Occasional word finding difficulties with circumlocutions. Still initiating and participating in conversations the same. Changes in living arrangements:. No changes Current alcohol/smoking/drug use: None Changes in sleep hygiene: VARUN: Utilizing Cpap most of the time . Patient has commented that she feels better with Cpap. May have a bad dream when she doesn't wear her Cpap-may yell out in her sleep like she's having a nightmare. This is not happening dayanna as much since starting Cpap. Naps during the day. Changes in Appetite/Eating: Increased preference for sweets. No other changes. Socialization/Engagement/Activities: Very active with their gnosticism. Gets out with friends on a regular basis. Watches [employer] at times Goes to [facility] [employer] Volunteer work (gnosticism and school) Good network of friends through gnosticism Changes in physical and functional ability: No changes, no falls. Goes to the regularly ADL/IADL FLOWSHEET 04/01/2025 9:28 AM Memory ADL/IADL Mobility Independent Toileting Independent Incontinence? Normal complete control Bathing Independent Dressing Independent Eating Independent Small sums of money (e.g., make change, leave a small tip) Independent Complicated financial or business transactions (e.g., balance checkbook, pay bills) Independent spouse and patient do this together Shopping and creating shopping list Independent may be buying duplicated items a bit more Meal preparation Independent doing this together Laundry Independent Using phone Independent Computer/Electronics Independent Housekeeping Independent Medication management Independent may ask spouse more questions, some oversight by spouse Is he/she driving? Yes Are there problems or risks because of poor thinking while driving? No prefers for spouse to drive, only driving local places, did not completed driving eval Transportation Independent Ability to independently carry out activities outside the home Independent Safety Issues: Does family feel patient can be left home alone: Yes Does family feel patient would know how to call for help in an emergency: Yes Is patient wandering: No Any weapons in the home: Yes If yes, are weapons locked and secured: Yes Any concerns about driving safety: Driving evaluation ordered at last office visit Community Resources: None currently Caregiver Support Needs/Questions/Challenges: Spouse states things are manageable right now. Good friend and family support. Interventions/Follow up Plan: This SW met with family/caregiver to obtain information for assessment. This SW assessed for any changes since last office visit and discussed patients current functioning and care needs. SW worked with family to identify any need for increased support. SW will discuss with MD who will address all questions and concerns during OV with pt and family. Provided information about social work servicesavailable through the clinic including contact information. SW allowed opportunity to address any questions or concerns or discuss any support needs. This Excavating Supervisor will continue to follow as needed for support, collaboration, and resources. Urszula CORTEZ Excavating Supervisor [facility] P: [phone] * Maryanne Mario MD - 04/01/2025 9:00 AM EDT [employer] Toolbox and Cognitive Report Name: Aminata Borrego Date of testin04/01/2025 Age: 64 y.o. Education: 12 y Unless otherwise stated, definitions throughout this report are as follows: Raw score (0-20): Number correct (accuracy) out of 20. Computed score: 0-10; based on general population not corrected for age and other variables. Uncorrected standard score: performance of the test-taker to those in the entire [employer] Toolbox nationally parts sales representative normative sample, regardless of age or any other variable Age corrected standard score: Corrected for performance related to normative sample 8-85 years Fully corrected T score corrected for age, gender, race/ethnicity, and education IQ Scores Picture vocabulary Oral reading recognition Uncorrected standard score Age corrected standard score 84 91 Fully corrected T score 42 48 Orientation Task Correct answer (yes/no) Name Yes Day Yes Date No Month Yes Year Yes Season Yes Place No Situation Yes DOT COUNTING SCORE: 17 FRONTOSUBCORTICAL NETWORK FUNCTIONS Digit span Task Number correct Forward (simple attention) 6/7 Backwards (working memory) 4/5 FLANKER: Attention and Inhibitory control Task: Ability to attend to a central target while inhibiting attention to the competing stimuli which are flanking the target on either side. Participants must indicate the direction of a central arrow which may be pointing in the same (congruent) or opposite (incongruent) direction as the flankingarrows. Both accuracy and reaction time are computed. Type of score Value (Raw/Standard/T score) Raw score (0-20) No data recorded Computed score (0-10) No data recorded Uncorrected standard score No data recorded Age corrected standard score 39 Fully corrected T score 19 DIMENSIONAL CHANGE CARD SORT: Cognitive flexibility Task: Ability to shift set by either being instructed to attend to the shape or color of an object.A target object (e.g., a truck) appears at the top of the screen and two response objects are presented on the bottom of the screen which differ either in shape or color from the target. Participantschoose the object on the bottom which matches either the color or the shape of the target. Type of score Value (Raw/Standard/T score) Raw score (0-30) No data recorded Computed score (0-10) No data recorded Uncorrected standard score No data recorded Age corrected standard score 68 Fully corrected T score 30 LIST SORTING: Working memory Task: Pictures of different foods and animals are displayed with accompanying audio recording and written text (e.g., ???elephant?? ), and the participant is asked to say the items back in size orderfrom smallest to largest, first within a single dimension (either animals or foods, called 1-List) and then on two dimensions (foods, then animals, called 2-List). The number of items in each series increases from one trial to the next, depending on the participant???s ability to perform the task correctly. Type of score Value (Raw, computed, standard, T score) Raw score (0-26) 8 Uncorrected standard score No data recorded Age corrected standard score 80 Fully corrected T score 39 PATTERN COMPARISON: Simple processing speed Task: Participants must discern, as quickly as possible, whether two [id number] pictures are the same or not. The items are presented one pair at a time on the iPad screen, and the participant is given 85 seconds of response time (excluding any time needed for the given iPad to ???load?? the items) to respond to as many items as possible (up to a maximum of 130). The items are designed to be simple so as to most purely measure processing speed. Type of score Value (Raw/Standard/T score) Raw score (0-130) 36 Computed score No data recorded Uncorrected standard score No data recorded Age corrected standard score 76 Fully corrected T score 35 PHONEMIC FLUENCY F : Executive function Number/60 sec 14 Intrusions 1 Perseverations 2 Expected based on education 15 DEFAULT NETWORK FUNCTIONS CERAD VERBAL LEARNING TEST: Verbal and visual episodic memory Task Number correct Number of intrusions Trial 1 0 0 Trial 2 4 0 Trial 3 4 0 Delayed free recall 0 0 Delayed recognition Targets 9 Delayed Recognition False Positive 5 Savings Ratio: Savings ratio score (# of delayed free recall): 0 % (expected >85%) 3-Figure Visual Memory (Episodic memory--visual) Task Number correct Delayed free recall 0.5/3 Delayed recognition targets 3/3 False positives 3/7 SEMANTIC FLUENCY (fruit and vegetables): Semantic processing and executive function Number/60 sec 7 (tscore - 17) Intrusions 1 Perseverations 0 Expected based on education 15 VISUAL-SPATIAL AND VISUO-CONSTRUCTIVE FUNCTION Susan figure (drawing) Score 19 LANGUAGE TESTING [place] Naming Test Task Score Total number correct 12 Stimulus cue correct 0 Phonemic cue correct 3 Anomic errors 2: picks something up/tongs, swing on it..lay on it/hammock Paraphasic errors 1: siv/funnel Visual errors 0 Object knowledge errors Preserved COMPOSITE SCORES: COMPOSITE TYPE Uncorrected standard score Age corrected standard score Fully corrected T-score Crystallized No data recorded 85 45 CRYSTALLIZED COGNITION COMPOSITE Crystallized abilities are more dependent on experience and less on biological influences. They represent an accumulated store of verbal knowledge and skills, and thus are more heavily influenced by education and cultural exposure, particularly during childhood. These abilities continue to improve slightly into middle adulthood, and then remain relatively stable. The composite score is derived by averaging the standard scores of Picture Vocabulary and Reading tests and then deriving standard scores based on this new distribution. Higher scores indicate higher levels of functioning. Every value 10 points above or below represent another change in level above or below average. NONE 0 QUESTIONABLE 0.5 MILD 1 MODERATE 2 SEVERE 3 MEMORY No loss or slight inconsistent forgetfulness Consistent forgetfulness, partial recollection of events Moderate memory loss, more marked for recent events, interferes with daily activities Severe memory loss, only highly learned material retained Severe memory loss, only fragments remain ORIENTATION Fully oriented Fully oriented but with slight difficulties with time relationships Moderate difficulty with time relationships, oriented in familiar areas Severe difficulty with time relationships, almost always disoriented to place Oriented to person only JUDGMENT AND PROBLEM SOLVING Solves everyday problems such as financial affairs, judgment preservedSlight difficulty in solving problems, similarities and differences Moderate difficulty in handlingproblems, similarities and differences, social judgment maintained Severely impaired in handling problems, similarities and differences, social judgment impaired Unable to make judgments or solve problems COMMUNITY AFFAIRS Independent functioning in job, shopping, and social groups Slight impairment in these activities Not independent, appears normal to casual inspection Not independent outside the home, but well enough to be taken to events outside the home Not independent outside the home, appearstoo ill to be taken outside the home HOME AND HOBBIES Daily life at home, hobbies, and intellectual interests well maintained Daily lifeat home, hobbies, and intellectual interests slightly impaired Slight impairment in tasks at home, more difficult chores, hobbies, and interests abandoned Only simple chores maintained, restricted interests poorly maintained No significant function at home PERSONAL CARE Fully capable of self care Fully capable of self care Needs prompting Requires assistance in dressing and hygiene Requires much help with personal care; frequent incontinence 04/01/2025 10:00 AM Clinical Dementia Rating (CDR) Memory: 1 Orientation: 0.5 Judgment and Problem Solvin.5 Community Affairs: 0.5 Home and Hobbies: 0.5 Personal Care: 0 Total CDR: 3 CDR Ratin.5 Overall severity of findings meets criteria for mild cognitive impairment or mild dementia. CDR CDR Rating:: 0.5 SOB Total CDR:: 3 INTERPRETATION: The results of this neuropsychologic battery are abnormal, in a pattern most consistent with impairments in default mode network > frontosubcortical domain. Formal effort measures were performed today and normal. Results are felt to be valid and an accurate representation of patient's cognitive abilities. Compared to 03/2024 improvement was seen on working memory, processing speed, and simple attention. Decline was noted on semantic fluency, cognitive flexibility, and sustained attention. No significant change was seen on orientation, phonemic fluency, verbal rate of learning, verbal memory, visual memory, naming, visual spatial construction. 03/16/2024 04/01/2025 [facility] Digit span forwards score (simple attention) 5 6 Name Yes Yes Day No Yes Date Yes No Month Yes Yes Year Yes Yes Season Yes Yes Place No No Situation Yes Yes Digit span backwards score (working memory) 3 4 Phonemic score 15 14 Intrusions 1 1 Perseverations 1 2 Trial 1 score 1 0 Intrusions (list) 0 0 Trial 2 score 4 4 Intrusions (list) green 0 Trial 3 score 5 4 Intrusions (list) green 0 Delayed Free Recall score 0 0 Highest # [place] 5 4 Targets correct (Delayed Recognition) 10 9 False positives (Delayed Recognition) 7 5 Delayed Free Recall score (3 Figure) 0 0.5 Targets Correct (3-Figure) 3 3 False Positive (3-Figure) 4 3 [place] number correct score 12 12 Stimulus cue correct 0 0 Phonemic cue correct 3 3 Anomic 2: thing you pharmacy picking technician ice with/tongs, sift or put stuff down it/funnel 2: picks something up/tongs, swing on it..lay on it/hammock Paraphasic 1: dice/dominoes 1: siv/funnel Visual 0 0 Fluency score 12 7 Intrusions 0 1 Perseverations 2 0 Figural drawing and memory: [place] 3-figures (if abnormal, describe errors) 3 2.5 Drawing intact intact Susan Figure score (drawing) 17 19 Gestalt impaired intact Organization impaired impaired Apple and a banana 2 2 Desk and chair 0 0 Lie and mistake [address] 0 0 How many nickels in a dollar? intact intact How many quarters in $6.75? intact intact Serial 3 subtraction from 20 intact intact 03/16/2024 04/01/2025 Neurology NIH Toolbox Picture Vocabulary Uncorrected Standard Score: 102 Picture Vocabulary Age Corrected Standard Score: 93 84 Picture Vocabulary Fully-Corrected T-Score: 42 42 Flanker Inhibitory Control and Attention Test Raw Score Value: 19 Flanker Inhibitory Control and Attention Test Computed Score: 4.95 Flanker Inhibitory Control and Attention Test Uncorrected Standard Score: 66 Age Corrected Standard Score 65 39 Flanker Fully Corrected T Score: 24 19 List Sorting Raw Score: 6 8 List Sorting Uncorrected Standard Score: 59 List Sorting Age Corrected Standard Score: 67 80 List Sorting Fully Corrected T-Score: 28 39 Dimensional Raw Score: 25 Dimensional Change Computed Score: 6.82 Dimensional Change Uncorrected Score: 92 Dimensional Change Age-Corrected Standard Score: 91 68 Dimensional Change Fully Corrected T-Score: 43 30 Pattern Comparison Processing Speed Test Raw Score 33 36 Pattern Comparison Processing Speed Test Computed Score 38 Pattern Comparison Processing Speed Test Uncorrected Standard Score 78 Pattern Comparison Processing Speed Test Age-Corrected Standard Score 78 76 Fully corrected t-score: 31 35 Cognition Crystallized Composite Uncorrected Standard Score 104 Cognition Crystallized Age-Corrected Standard Score: 98 85 Cognition Crystallized Fully Corrected T-Score: 46 45 Orientation is intact for: Task Correct answer (yes/no) Name Yes Day Yes Date No Month Yes Year Yes Season Yes Place No Situation Yes IQ was found to be T scores of 42 and 48 on 2 separate measures, which is likely parts sales representative of average IQ compared to the general population. Impairments were seen in frontal-subcortical networks affecting performance on tasks of simple attention (digit span forward 6/7), sustained attention and inhibitory control (flanker task moderately below average), working memory (digit span backward 4/5, list sorting milldy below average), processing speed (pattern comparison mildly below average), shifting and flexibility (dimensional change card sort moderately below average), and phonemic fluency (14 with expected >15). Impairments were seen in default network affecting episodic memory as measured by reduced rate of learning (4/10 over 3 trials, with severe rate of increase), absent delayed free recall (0/10), without intrusions and absent benefit from delayed recognition 9 targets and 5 false positives. Savings ratio 0 (expected >84%). 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 Visual memory was notable for 0.5/3 delayed recall, 3/3 recognition with 3/7 false positives, consistent with an amnestic syndrome. Language screen reveals fluent speech. Performance on [place] naming test 15 item version reveals mild anomia 12. Errors were: Anomic: 2: picks something up/tongs, swing on it..lay on it/hammock Paraphasic: 1: siv/funnel Visual errors: 0 Object knowledge Preserved Semantic fluency score is 7 (tscore - 17) (expected > 15) Visuospatial complex problem solving and visuoconstructive impairments was seen in performance of simple (nonsense figures 2.5/3) and complex drawing tasks (Complex Susan figure 19/36). The drawing was intact; mildly micrographic with poor proportions and inverted features missing several details.Performance reflected frontosubcortical impairment and suspected primary visualspatial. Preserved functions include arithmetic. Deficits were seen in frontal executive/dorsal attention network reduced simple attention, reduced sustained attention, reduced working memory, slow processing speed, impaired set shifting, and low phonemic fluency, default network amnestic syndrome, aphasia, and low semantic fluency, and visual-spatial network simple figure copy, complex visual problem solving, primary visual-spatial impairment, and effects of executive dysfunction on visual processing and construction. Etiologies for frontal-executive/dorsal attention network include non- neurodegenerative contributions from VARUN, mood disorder with uncontrolled anxiety, thyroid disease as well as possible neurodegenerative etiologies such as AD. Etiology for default network dysfunction includes: AD 91 minutes were spent by Brandon Dennis administering the neuropsychological battery. 91 minutes were spent by Maryanne Mario MD in interpretation and reporting. documented in this encounter Plan of Treatment Not on file documented as of this encounter Visit Diagnoses Diagnosis Mild early onset Alzheimer's dementia, unspecified whether behavioral, psychotic, or mood disturbance or anxiety ([facility])- Primary VARUN (obstructive sleep apnea) Obstructive sleep apnea (adult) (pediatric) documented in this encounter Care Teams Beef Specialist Relationship Specialty Start Date End Date Alexis Rubin MD [address] [place] [address] PCP - General Family Medicine 02/28/24 documented as of this encounter
[2025-05-02 15:28] LABS: Hematocrit 41.1 % (37.0-47.0); Hemoglobin 13.7 g/dL (12.2-16.2); Immature Granulocytes % 0.3 %; Mean Corpuscular HGB Conc 33.3 g/dL (31.8-35.4); Mean Corpuscular Hemoglobin 31.1 pg (27.0-31.2); Mean Corpuscular Volume 93.4 fl (81-99); Nucleated Red Blood Cells % 0 %; Platelet Count 287 K/mm3 (142-424); Red Blood Count 4.40 M/mm3 (4.20-5.40); Red Cell Distribution Width-SD 44.0 fL; White Blood Count 5.9 K/mm3 (4.8-10.8)
[2025-05-02 16:00] LABS: Albumin Level 4.8 g/dl (3.5-5.0); Chloride 99 mmol/L (98-107); Potassium 4.3 mmoL/L (3.5-5.1); Sodium 137 mmol/L (136-145)
[2025-05-02 16:02] LABS: Alanine Aminotransferase 23 U/L (12-78); Aspartate Amino Transferase 32 U/L (14-36); Blood Urea Nitrogen 13 mg/dl (7-17); Creatinine,Serum 0.60 mg/dl (0.52-1.04); Estimated Glomerular Filt Rate 100 ml/min (>60); GFR (African American) 121 ML/MIN (>60)
[2025-05-02 16:03] LABS: Albumin/Globulin Ratio 1.8 (1.1-1.8); Alkaline Phosphatase 64 U/L (38-126); Anion Gap 11.3 mEq/L (5-15); Bilirubin,Total 0.7 mg/dl (0.2-1.3); Calcium 9.5 mg/dl (8.4-10.2); Carbon Dioxide 31 mmol/L (22.0-30.0); Cholesterol 204 mg/dl (140-200); Globulin 2.6 g/dL (1.3-3.2); Glucose 99 mg/dl (74-100); HDL Cholesterol 53 mg/dl (40-60); Total Protein,Serum 7.4 g/dl (6.3-8.2); Triglycerides 191 mg/dl (30-150)
[2025-05-02 16:35] LABS: Thyroid Stimulating Hormone 1.95 uIU/mL (0.465-4.68)
[2025-05-02 16:53] LABS: Hepatitis C Ab Qual. W/ RFX NEGATIVE (Negative)
[2025-05-03 04:08] LABS: Hepatitis B Surface Antigen Negative (Negative)
--- OUTSIDE RECORDS SUMMARY | 2025-05-03 13:17 | XMS_ITS | Clinical Summary ---
Author Organization [facility] Address [address] [place] [id number] Care Team Providers Care Dog Races Manager Name Role Phone Bunny Spencer M.D. Primary Care Provider [phone] Source Comments [facility] is fully rolled out with thefollowing exceptions:[facility] Allergies Active Allergy Reactions Criticality Noted Date Comments Cephalosporins Unknown 04/08/2011 Penicillins Unknown 04/08/2011 Medications METOPROLOL TARTRATE PO Take by mouth. 25mg oral twice a day Active venlafaxine (EFFEXOR) 37.5 MG tablet Take by mouth. 1 tab oral once a day Active levothyroxine (SYNTHROID) 50 MCG tablet Take 50 mcg by mouth 1 time daily. Active Cholecalciferol (VITAMIN D3) 3000 UNITS TABS Take 1 Tab by mouth 1 time daily. Active Social History Tobacco Use Types Packs/Day Years Used Date Smoking Tobacco: Never Assessed Comments Unknown Sex and Gender Information Value Date Recorded Sex Assigned at Not on file Legal Sex Female 5:33 AM EST Gender Identity Not on file Sexual Orientation Not on file Plan of Treatment Health Maintenance Due Date Last Done Comments MMR IMMUNIZATION (1 of 1 - S tandard series) 11/30/1959 DTAP/Tdap/Td IMMUNIZATION (1 - Tdap) 1965 VARICELLA IMMUNIZATION (1 of 2 - 13+ 2-dose series) 11/30/1971 AMB SEASONAL FLU VACCINE (#1) 04/15/2025 COVID-19 Vaccine ( - 2023-2 5 season) 2025 Respiratory Syncytial Virus (RSV) >60yo or (1 - 1-dose 75+ series) 2033 HEPATITIS B IMMUNIZATION Aged Out No longer eligible based on patient's age to complete this topic HIB IMMUNIZATION Aged Out No longer e ligible based on patient's age to complete this topic HPV IMMUNIZATION Aged Out No longer e ligible based on patient's age to complete this topic IPV IMMUNIZATION Aged Out No longer e ligible based on patient's age to complete this topic MCV4 IMMUNIZATION Aged Out No longer eligible based on patient's age to complete this topic MENINGOCOCCAL B VACCINE Aged Out No l onger eligible based on patient's age to complete this topic Respiratory Syncytial Virus (RSV) <20mo Aged Out No longer eligible b ased on patient's age to complete this topic Insurance [employer]O NON-TRADITIONAL Care Teams Dog Races Manager Relationship Specialty Start Date End Date [place] [address] PCP - General External Family Practice 10/05/13
--- OUTSIDE RECORDS SUMMARY | 2025-05-03 13:17 | XMS_ITS | Encounter Summary ---
Author Organization [facility] Address [address], [address] [place] [address] Care Team Providers Care Technical Sales Representatives Name Role Phone Alexis Rubin MD Primary Care Provider [phone] Encounter Details Date Type Department Care Team (Late st Contact Info) Description 06/19/2014 PAT Telephone [facility] PAT [address] [place] [address] Amanda Garcia RN Social History Tobacco Use Types Packs/Day Years Used Date Smoking Tobacco: Never Assessed Comments Unknown Sex and Gender Information Value Date Recorded Sex Assigned at Not on file Legal Sex Female 9:32 AM EST Gender Identity Not on file Sexual Orientation Not on file documented as of this encounter Plan of Treatment Not on file documented as of this encounter Visit Diagnoses Not on filedocumented in this encounter Care Teams Technical Sales Representatives Relationship Specialty [place] [address] [place] [address] [place] [address] PCP - General Family Medicine 07/28/18 documented as of this encounter
--- OUTSIDE RECORDS SUMMARY | 2025-05-03 13:17 | XMS_ITS | Patient Health Record ---
Author Organization [facility] Address [address] [facility] [address] [place] [address] Care Team Providers Care Manager Of Program Name Role Phone Cindy Plata [phone] Allergies Allergen (clinical drug ingredient) Drug/Non Drug Allergy documented on EMR Reaction Allergy Type Onset Date Status diazepam Valium Unknown Drug Allergy Active Medicinal cephalosporin and acting as antibacterial agent (FN) Cephalosporins Unknown Drug Allergy Active Penicillin Unknown Drug Allergy Active Reason For Referral No Information Medications Medication SIG (Take, Route, Fr equency, Duration) Notes Start Date End Date Status Fosamax 70 MG Tablet 1 tablet 30 minutes before the first food, beverage or medicine of the day with plain water Orally once weekly; Duration: 90 days Active Donepezil HCl Active Metoprolol Succinate ER 05/27/2017 Active Ezetimibe Active Vitamin D3 Active Venlafaxine HCl ER 04/27/2017 Active Rosuvastatin Calcium Active Protonix 1 tablet oral QD prn Act olive Synthroid 05/23/2017 Active Social History Tobacco Use: Social History Observation Description Date Smoking Status WARNING: Information temporarily unavailable Sex Assigned At : Social History Observation Description Sex Assigned At Female Social History Tobacco Use: Social Info Question Answer Notes Tobacco Control (Standard) Tobacco use: Former Problems Problem Type SNOMED Code ICD Code Onset Dates Problem Status W/U Status Risk Notes Problem Atrophy of vagina (703614268) Vaginal atrophy (N95.2) Active confirmed Problem Postmenopausal osteoporosis (161860267) Postmenopausal osteoporosis (M81.0) Active confirmed Plan Of Treatment Future Test Test Name Order Date *Screen Mammo b/l w/ Luan per protocol 0 05/02/2024 Insurance Providers Payer Name Payer Address Payer Phone Subscriber Number Group Number Insured Name Patient Relationship to Insured Coverage Start Date Coverage End Date [employer] Medicare [address] [address] [place], [place] [id number] Aminata Borrego Self - patient is the insured Medical (General) History Medical History History ICD Code Endometriosis High blood pressure Thyroid disorder High cholesterol Bowel trouble Anxiety Depression *NO SIGNIFICANT GENETIC HISTORY FHQ administered - negative Surgical History Surgery Date(Month/Year) Breast biopsy section Laparoscopy Thyroidectomy-partial right
--- OUTSIDE RECORDS SUMMARY | 2025-05-03 13:17 | XMS_ITS | Clinical Summary ---
Author Organization [facility] Address [address] [place] [address] Phone Care Team Providers Care Casting And Curing Operator Name Role Phone Mavis Claudio DO Unavailable Alexis Rubin MD Primary Care Provider [phone] Allergies Active Allergy Reactions Criticality Noted Date Comments Atorvastatin Other (See Comments) 05/20/2020 Nausea, body aches Nausea, body aches Clarithromycin Nausea Only,Other (See Comments) 04/03/2012 Made mouth raw Cephalosporins Hives 12/19/2012 Diazepam Palpitations Low 04/25/2015 Increased heart rate Ezetimibe Other (See Comments) 10/20/2020 Other Reaction(s): Unknown Cephalexin Hives Penicillins Hives Pravastatin Other (See Comments) 10/14/2020 Nausea and severe body aches Nausea and severe body aches Rosuvastatin Other (See Comments) 05/20/2020 Nausea, body aches Nausea, body aches Shellfish Containing Products Other (See Comments) 05/11/2017 makes my BP go franklin high Sulfa (Sulfonamide Antibiotics) 04/03/2012 Medications pantoprazole (PROTONIX) 40 mg Oral Tablet, Delayed Release (E.C.) 40 mg daily as needed. Take 40 mg by mouth daily. Active estradiol (ESTRACE) 0.01 % (0.1 mg/gram) Vagl CreamIndication s:Atrophic vaginitis Place 1 g vaginally two times a week. 1 Tube 2 6 Active venlafaxine (EFFEXOR) 37.5 mg Oral Tablet Take 75 mg by mouth Daily at 1 PM. Active Cholecalciferol , Vitamin D3, (VITAMIN D3) 2,000 unit Oral Tablet Take 5,000 Units by mouth daily. Active metoprolol succinate (TOPROL-XL) 50 mg Oral Tablet Sustained Release 24 hr Take 1 Tab by mouth daily. 90 Tab 3 9 Active ezetimibe (ZETIA) 10 mg Oral Tablet Take 1 Tablet by mouth every other day. 3 Active rosuvastatin (CRESTOR) 5 mg Oral Tablet TAKE 1 TABLET BY MOUTH TWO TIMES A WEEK 3 Active SYNTHROID 75 mcg Oral Tablet Take 1 Tablet by mouth daily. 100 Tablet 3 5 Active rivastigmine (EXELON) 9.5 mg/24 hour TD Patch [address] 1 Patch onto the skin daily. 5 Active alendronate (FOSAMAX) 70 mg Oral Tablet TAKE 1 TABLET ONE TIME WEEKLY 12 Tablet 1 5 Active Active Problems Problem Noted Date Diagnosed Date Osteoporosis, postmenopausal 11/03/2023 Post-surgical hypothyroidism 11/18/2021 Hypercholesterolemia 04/03/2012 Overview (11/18/2021): Tolerating Livalo 2 mg Atrophic vaginitis 10/29/2010 HTN (hypertension) 09/10/2010 DUB (dysfunctional uterine bleeding) Uterine fibroid Diverticulitis Endometriosis Surgical History Surgery Date Site/Laterality Comments BREAST SURGERY 08/15/1992 - 08/14/1993 bx TYMPANOSTOMY TUBE PLACEMENT 08/15/2009 - 08/14/2010 lt ear SECTION 08/15/1989 - 08/14/1990 CHOLECYSTECTOMY 08/15/2006 - 08/14/2007 THYROIDECTOMY, PARTIAL 06/15/2012 - 07/14/2012 PELVIC LAPAROSCOPY 08/15/1995 - 08/14/1996 Found Lyomioma in colon COLONOSCOPY UPPER GASTROINTESTINAL ENDOSCOPY FOOT SURGERY 05/11/2017 Foot/Left LEFT FOOT FIRST METATARSOPHALANGEAL CHEILECTOMY WITH IMPLANT; Surgeon: Lucas Cornejo MD; Location: [facility]; Service: Orthopedics Medical devices from this surgery are in the Medical Devices section. Medical History Medical History Date Comments HTN (hypertension) 09/10/2010 Hyperlipidemia Anxiety Endometriosis Uterine fibroid Pneumonia hx of Rapid heart rate Heartburn occ Hiatal hernia hx of Diverticulosis Mass non malignant tu mor in colon Arthritis lt knee Headache migraines in pas t Thyroid disease January 2012 Nodule on Right - Removed - hypothyroidism Encounter for blood transfusion 06-20-2012 For Thyroid Surgery - Jugular vein was cut Depression Pancreatitis prior to having gall bladder removed Post-operative nausea and vomiting Hypothyroidism Family History Medical History Relation Name Comments Cancer Brother LACI MANCUSO prostate High Blood Pressure Brother LACI MANCUSO Prostate Cancer Brother LACI MANCUSO Cancer Father prostate Diabetes Father Heart Attack Father Heart Disease Father late 50's, cab g and stents Heart Surgery Father High Cholesterol Father Hypertension Father Prostate Cancer Father Cancer Mother FRANC pancreatic High Cholesterol Mother FRANC COPD Sister Janey Kumar High Blood Pressure Sister Janey Kumar High Cholesterol Sister Janey Kumar Hypertension Sister Janey Kumar Other Sister Janey Kumar blood clot Anesth Problems Neg Hx Relation Name Status Comments Brother LACI MANCUSO Alive Father Mother FRANC Sister Janey Kumar Alive Social History Tobacco Use Types Packs/Day Years Used Date Smoking Tobacco: Former Cigarettes 0.3 5 0 09/10/1985 - 09/10/1990 Smokeless Tobacco: Never Tobacco Cessation:Counseling Given: Not Answered Comments:quit in 1990 Alcohol Use Standard Drinks/Week Comments No 0 (1 standard drink = 0.6 oz pur e alcohol) Sexually Active Control Partners Comments Yes Post-menopausal, Other-see comments Male Vasectomy Comments No Sex and Gender Information Value Date Recorded Sex Assigned at Not on file Legal Sex Female 3:35 PM EDT Gender Identity Not on file Sexual Orientation Not on file Obstetrics History Para Term AB IAB SAB Ectopic Multiple Livin g Live Births 5 2 2 3 3 2 2 Date Outcome GA Total Labor Labor/2nd/3rd Weight Sex Type Anes PTL [place] A1 A5 Name Clin Term M Vag-S pont Living Term M CSP Living SAB SAB SAB Last Filed Vital Signs Vital Sign Reading Time Taken Comments Blood Pressure 125/77 11/05/2024 9:34 AM EDT Pulse 76 11/05/2024 9:34 AM EDT Temperature 36.9 C (98.4 F) 05/11/2017 12:10 PM EDT Respiratory Rate 16 11/05/2024 9:34 AM EDT Oxygen Saturation 97% 11/15/2018 10:29 AM EDT Inhaled Oxygen Concentration - - Weight 62.1 kg (137 lb) 11/05/2024 9:34 AM EDT Height 152.4 cm (5') 11/05/2024 9:34 AM EDT Body Mass Index 26.76 11/05/2024 9:34 AM EDT Plan of Treatment Upcoming Encounters Date Type Department Care Team (Late st Contact Info) Description 11/04/2025 9:30 AM EDT Office Visit [facility] [place] [address] [facility] [address] [place] [id number] Amos Townsend MD [address] [place] [address] Health Maintenance Due Date Last Done Comments Wellness Exam Medicare 1963 Hepatitis C Screening 1976 Cologuard 11/30/2003 FIT 11/30/2003 Sigmoidoscopy 11/30/2003 Virtual Colonography 11/30/2003 Pneumococcal Vaccine 50+ (1 of 1 - PCV) 2008 Zoster (1 of 2) 2008 Colon Cancer Screening 04/12/2017 Colonoscopy 04/12/2017 04/12/2007 (Not Entered) COVID-19 Vaccine ( season) 2025 07/15/2021, 11/13/2020, 10/08/2020 Influenza Vaccine (#1) 2025 , 06/06/2023, 06/23/2020, Additional history exists Breast Cancer Screening 06/25/2026 06/25/20 24, 06/25/2024, 02/02/2023, Additional history exists DTaP/TDaP/Td (2 - Td or Tdap) 08/28/2030 08/28/2020 Bone Density Screening Completed 06/22/2023 Hepatitis B Vaccine Aged Out No longe r eligible based on patient's age to complete this topic Meningococcal B Vaccine Aged Out No l onger eligible based on patient's age to complete this topic Medical Devices Implanted Type Area Trestle Mechanic Device Identifier Shelf Expiration Date Model / Serial / Lot Implant Papo 10mm - [id number] Implanted:Qty: 1 on 05/11/2017 by Lucas Cornejo MD at [facility] Left: Foot PAPO SIMMS 03/14/[address] / / [id number] Procedures Procedure Name Priority Date/Time Associated Diagnosis Comments DX BONE DENSITY AXIAL SKELETON Routine 06/22/2023 8:26 AM EST Encounter for screening for osteoporosis HM MAMMOGRAPHY Routine 06/01/2008 from Last 3 Months or Most Recently Relevant to Health Maintenance Results * DX BONE DENSITY AXIAL SKELETON (06/22/2023 8:26 AM EST) Anatomical Region Laterality Modality Dexa Scan 06/22/2023 Impressions 06/22/2023 3:36 PM EST Indication: The patient is a post-menopausal female under age 65 with clinical risk factors for an osteoporotic fracture that requires a bone density assessment. Study was performed on netFactor. Bone Density: Region BMD T-score Z-score AP Spine (L3, L4) 0.772 -3.0 -1.2 Femoral Neck (Left) 0.716 -1.2 0.3 Total Hip (Left) 0.831 -0.9 0.3 Femoral Neck (Right) 0.763 -0.8 0.7 Total Hip (Right) 0.858 -0.7 0.5 1/3 Radius (Left) 0.686 -0.1 1.5 World Health Organization criteria for BMD interpretation classify patients as: Normal (T-score at or above -1.0), Low Bone Density (T-score between -1.0 and -2.5), or Osteoporotic (T-score at or below -2.5). T Scores are reported in Postmenopausal women and in men age 50 and older. Z-scores are reported in females prior to menopause and in males younger than age 50. 10-year Fracture Risk: FRAX not reported because: Some T-score for Spine Total or Hip Total or Femoral Neck at or below -2.5 Clinical Information Provided by Patient: Has used or is currently using the following medications: Vitamin D, Thyroid medication Has had or currently has the following medical conditions: Depression Patient maximum height was 61.5 Menopause Age: 50 Patient is post menopausal Has low body mass. Interpretation: Bone mineral density is in the osteoporotic range. The spine portion of the study is limited by discordant vertebra. Following ISCD guidelines vertebra with more than 1.0 T-score difference between the vertebra and the adjacent vertebra have been deleted. Medical evaluation for secondary causes of low bone density may be appropriate. A minimum of two years may be required between bone density studies due to inherent testing precision limitations. Intervals between BMD testing should be determined according to each patient's clinical status: typically one year after initiation or change of therapy is appropriate, with longer intervals once therapeutic effect is established. Reported by: Sarah Ferraro PA-C, CCD on 06/22/2023 8:48:00 AM. us Cindy Plata MD IMG DEXA ORDERABLES Final Resu lt * HM MAMMOGRAPHY (06/01/2008) us Historical Provider HEALTH MAINTENANCE Final Res ult from Last 3 Months or Most Recently Relevant to Health Maintenance Insurance [employer] MEDICARE PPO MR [employer] MED[employer] PPO MR * Guarantor: Aminata Borrego Account Type Relation to Patient Date of Phone Billing Address [place] Personal Family Self Care Teams Casting And Curing Operator Relationship Specialty Start Date End Date Alexis Rubin MD [address] [place] [address] PCP - General Family Medicine 10/29/16 Mavis Claudio DO [address] [place] [address] Physician Internal Medicine-Cardiovascular Disease 02/05/14
--- OUTSIDE RECORDS SUMMARY | 2025-05-03 13:17 | XMS_ITS | Clinical Summary ---
Author Organization [facility] Address [address] [place] [address] Care Team Providers Care Pearler Name Role Phone Alexis Rubin MD Primary Care Provider [phone] Source Comments This information has been disclosed to you from confidential records protectedfrom disclosure by state law. You shall make no further disclosure of thisinformation without the specific, written, and informed release of theindividual to whom it pertains, or as otherwise permitted by law. A generalauthorization for the release of medical or other information is not sufficientfor the purposes of therelease of HIV test results or diagnoses. [id number] Allergies Active Allergy Reactions Criticality Noted Date Comments Atorvastatin 05/20/2020 Other Reaction(s): Other (See Comments), Unknown Nausea, body aches Nausea, body aches Nausea, body aches Clarithromycin High 06/16/2012 raw from tongue into stomach. Cephalosporins Itching,Rash Medium 06/16/2012 Ezetimibe 10/20/2020 Other Reaction(s): Unknown Penicillins Itching,Rash Medium 06/16/2012 Shellfish Containing Products 05/11/2017 Other Reaction(s): GI Upset, Other (See Comments) Raises heart rate makes my BP go franklin high Sulfa (Sulfonamide Antibiotics) 04/03/2012 Other Reaction(s): Unknown Diazepam Palpitations Low 06/20/2012 Medications venlafaxine (EFFEXOR-XR) 37.5 MG 24 hr capsule Take 2 capsules (75 mg total) by mouth in the morning and at bedtime. Active cholecalciferol , vitamin D3, (VITAMIN D3) 5,000 unit Tab Take by mouth. Active pantoprazole (PROTONIX) 40 MG tablet Take 1 tablet (40 mg total) by mouth if needed. Active levothyroxine (SYNTHROID, LEVOTHROID) 75 MCG tablet Take 1 tablet (75 mcg total) by mouth daily. Active alendronate (FOSAMAX) 70 MG tablet Take 1 tablet (70 mg total) by mouth once a week. 02/09/2024 Active ezetimibe (ZETIA) 10 mg tablet Take 1 tablet (10 mg total) by mouth every other day. 11/15/2022 Active metoprolol succinate (TOPROL-XL) 50 MG 24 hr tablet Take by mouth. 01/31/2024 Active rosuvastatin (CRESTOR) 5 MG tablet Take by mouth. 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 01/24 Rosacea 01/25/2012 Inflamed seborrheic keratosis 01/25/2012 Benign neoplasm of skin of trunk, except scrotum 01/28/2011 Hemangioma 01/28/2011 Overview (05/15/2015): ICD-10 Transition Disorder of lip 01/28/2011 Overview (05/15/2015): ICD-10 Transition Actinic keratosis 01/28/2011 Other seborrheic keratosis 01/28/2011 Other dyschromia 01/28/2011 Other acne 03/26/2010 Disorder of skin or subcutaneous tissue 03/26/20 10 Overview (05/15/2015): ICD-10 Transition Leiomyoma of uterus 06/05/2008 Overview (05/15/2015): ICD-10 Transition Encounter for routine gynecological examination 06/05/2008 Overview (05/15/2015): ICD-10 Transition Encounters Date Type Department Care Team Description 04/01/2025 9:00 AM EDT Office Visit [facility] Neurology at [address] [address] Mike Cisneros MD Nesbitt, Alyssa, MD Mild early onset Alzheimer's dementia, unspecified whether behavioral, psychotic, or mood disturbance or anxiety (CMS-HCC) (Primary Dx); VARUN (obstructive sleep apnea) 03/29/2025 Telephone [facility] Neurology at [address] [address] Rossy Self MA 02/27/2025 Refill [facility] Neurology at [place] [id number] [address] Maryanne Mario MD 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 (CMS-HCC) from Last 3 Months Family History Medical History Relation Comments Basal cell carcinoma Father Coronary artery disease Father Heart disease Father Hypertension Father Breast Cancer Maternal Aunt Pancreatic Cancer Mother Pancreatitis Mother Melanoma Neg Hx Relation Status Comments Father Maternal Aunt Mother Social History Tobacco Use Types Packs/Day Years [...] on file Sexual Orientation Not on file Last Filed Vital Signs Vital Sign Reading Time Taken Comments Blood Pressure 155/80 04/01/2025 10:16 AM EDT Pulse 78 04/01/2025 10:16 AM EDT Temperature 37.3 C (99.2 F) 06/21/2012 11:46 AM EST Respiratory Rate 13 07/24/2012 9:17 AM EST Oxygen Saturation 98% 04/01/2025 10:16 AM EDT Inhaled Oxygen Concentration 98% 04/01/2025 1 0:16 AM EDT Weight 63 kg (139 lb) 04/01/2025 10:16 AM EDT Height 156.2 cm (5' 1.5 ) 09/26/2024 10:00 AM ES T Body Mass Index 25.84 09/26/2024 10:00 AM EST Plan of Treatment Health Maintenance Due Date Last Done Comments Abnormal Colonoscopy Follow Up 1960 Hepatitis C Screening (MyChart) 1960 Mammogram (MyChart) 1998 Cologuard (FIT-DNA) 11/30/2003 Colonoscopy 11/30/2003 Colorectal Cancer Screening (MyChart) 11/30/2003 Stool Testing (gFOBT) 11/30/2003 Immunization: Pneumococcal ( 1 of 1 - PCV) 2008 Immunization: Zoster (1 of 2) 2008 Osteoporosis Screening (DXA Scan) 2008 Immunization: RSV (Adult) (1 - Risk 60-74 years 1-dose series) 2018 Thyroid Function/TSH (MyChart) 03/22/2025 03/22/2024 , 07/20/2012 Immunization: COVID-19 ( season) 2025 07/15/2021, 11/13/2020, 10/08/2020 Immunization: Influenza (MyC enciso) (#1) 2025 05/29/2024, 06/06/2023, 06/23/2020, Additional history exists Depression Screening 09/18/2025 09/18/2024 Immunization: DTaP/Tdap/Td ( 2 - Td or Tdap) 08/28/2030 08/28/2020 Procedures Procedure Name Priority Date/Time Associated Diagnosis Comments THYROID FUNCTION CASCADE Routine 03/22/2024 12:31 PM EDT Mild cognitive impairment from Last 3 Months or Most Recently Relevant to Health Maintenance Results * Thyroid Function Orange (03/22/2024 12:31 PM EDT) TSH 3.79 0.45 - 4.12 uIU/mL 03/22/2024 2:08 PM EDT [facility] Serum 03/22/2024 12:3 1 PM EDT 03/22/2024 1:13 PM EDT us Maryanne Mario MD LAB BLOOD ORDERABLES Final Res ult [facility] [address] [place] [address], [facility] from Last 3 Months or Most Recently Relevant to Health Maintenance Insurance [employer] PPO MEDICARE Advance Directives For more information, please contact: [phone] * Full Code (Latest Code Status on File) Date Activated Date Inactivated Comments 06/20/2012 11:08 AM 06/21/2012 5:45 PM Care Teams Pearler Relationship Specialty Start Date End Date Alexis Rubin MD [address] [place] [address] PCP - General Family Medicine 02/28/24
--- OUTSIDE RECORDS SUMMARY | 2025-05-03 13:18 | XMS_ITS | Encounter Summary ---
Author Organization [facility] Address [address] [place] [address] Care Team Providers Care Business Office Director Name Role Phone Alexis Rubin MD Primary Care Provider [phone] Source Comments This information has been disclosed [...] release of HIV test results or diagnoses. 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
--- OUTSIDE RECORDS SUMMARY | 2025-05-03 13:18 | XMS_ITS | Encounter Summary ---
Author Organization [facility] Address [address] [place] [address] Care Team Providers Care Block Sawyer Name Role Phone Alexis Rubin MD Primary Care Provider [phone] Source Comments This information has been disclosed [...] release of HIV test results or diagnoses. [id number] Health Encounter Details Date Type Department Care Team (Late st Contact Info) Description 03/29/2025 Telephone [facility] Neurology at [address] [address] Rossy Self MA Social History Tobacco Use Types Packs/Day Years [...] on file documented as of this encounter Miscellaneous Notes * Telephone Encounter - Rossy Self MA - 03/29/2025 11:44 AM EDT HARESH confirmed scheduled appt with Patient on 03/29 for 04/01. Future Appointments Date Time Provider Department Center 04/01/2025 9:00 AM Maryanne Mario MD [facility] NEUR GNI UCGNI 07/02/2025 2:30 PM Samira John MD [facility] SLEP [facility] documented in this encounter Plan of Treatment Not on file documented as of this encounter Visit Diagnoses Not on filedocumented in this encounter Care Teams Block Sawyer Relationship Specialty Start Date End Date Alexis Rubin MD [address] [place] [address] PCP - General Family Medicine 02/28/24 documented as of this encounter
--- OUTSIDE RECORDS SUMMARY | 2025-05-03 13:18 | XMS_ITS | Clinical Summary ---
Author Organization [facility] Address [address], [address] [place] [address] Care Team Providers Care Remote Sensing Technologist Name Role Phone Alexis Rubin MD Primary Care Provider [phone] Allergies Active Allergy Reactions Criticality Noted Date Comments Clarithromycin 06/19/2014 Cephalosporins 06/19/2014 Penicillins 06/19/2014 Diazepam 06/19/2014 Medications levothyroxine (SYNTHROID) 88 MCG tablet Take 88 mcg by mouth Daily. Active venlafaxine (EFFEXOR XR) 37.5 MG XR capsule Take 37.5 mg by mouth daily. Active Cholecalciferol (VITAMIN D) 2000 UNITS CAPS capsule Take 4,000 Units by mouth daily. Active metoprolol (TOPROL-XL) 50 MG XL tablet Take 50 mg by mouth daily. Active pantoprazole (PROTONIX) 40 MG tablet Take 40 mg by mouth daily. Active Family History Medical History Relation Name Comments Cancer Father prostate Breast Cancer Maternal Aunt Cancer Mother pancreatic Relation Name Status Comments Father Alive Maternal Aunt Mother Social History Tobacco Use Types Packs/Day Years Used Date Smoking Tobacco: Never Alcohol Use Standard Drinks/Week Comments No 0 (1 standard drink = 0.6 oz pur e alcohol) Comments No Sex and Gender Information Value Date Recorded Sex Assigned at Not on file Legal Sex Female 9:32 AM EST Gender Identity Not on file Sexual Orientation Not on file Last Filed Vital Signs Vital Sign Reading Time Taken Comments Blood Pressure 143/85 07/15/2014 12:15 PM EST Pulse 87 07/15/2014 12:15 PM EST Temperature 36.7 C (98.1 F) 06/24/2014 8:46 AM EST Respiratory Rate 16 06/24/2014 9:40 AM EST Oxygen Saturation 99% 06/24/2014 9:34 AM EST Inhaled Oxygen Concentration - - Weight 59 kg (130 lb) 06/25/2024 10:43 AM EST Height 156.2 cm (5' 1.5 ) 06/25/2024 10:43 AM ES T Body Mass Index 24.17 06/25/2024 10:43 AM EST Plan of Treatment Health Maintenance Due Date Last Done Comments Depression Screen 1970 Hepatitis C screen 1976 Lipids 1998 Colonoscopy 11/30/2003 Colorectal Cancer Screen 11/30/2003 FIT/FOBT: Average risk 11/30/2003 Fecal-DNA (Cologuard): Average risk 11/30/2003 Sigmoidoscopy/CT colonography 11/30/2003 Pneumococcal 50+ years Vaccine (1 of 1 - PCV) 2008 Shingles vaccine (1 of 2) 2008 DEXA (modify frequency per FRAX score) 2013 Annual Wellness Visit (Medicare Advantage) 08/15/2024 Flu vaccine (#1) 03/15/2025 05/29/2024, , 06/23/2020, Additional history exists COVID-19 Vaccine ( season) 2025 07/15/2021, 11/13/2020, 10/08/2020 Breast cancer screen 06/25/2026 06/25/2024, 02/02/2023, 01/13/2022, Additional history exists DTaP/Tdap/Td vaccine (2 - Td or Tdap) 08/28/2030 08/28/2020 Respiratory Syncytial Virus (RSV) or age 60 yrs+ (1 - 1-dose 75+ series) 2033 Hepatitis A vaccine Aged Out No longe r eligible based on patient's age to complete this topic Hepatitis B vaccine Aged Out No longe r eligible based on patient's age to complete this topic Hib vaccine Aged Out No longer eligi ble based on patient's age to complete this topic Meningococcal (ACWY) vaccine Aged Out No longer eligible based on patient's age to complete this topic Meningococcal B vaccine Aged Out No l onger eligible based on patient's age to complete this topic Polio vaccine Aged Out No longer elig ible based on patient's age to complete this topic Procedures Procedure Name Priority Date/Time Associated Diagnosis Comments [facility] DIGITAL SCREEN BILATERAL Routine 06/25/2024 10:48 AM EST Visit for screening mammogram from Last 3 Months or Most Recently Relevant to Health Maintenance Results * [facility] DIGITAL SCREEN BILATERAL (06/25/2024 10:48 AM EST) Anatomical Region Laterality Modality Breast Bilateral Mammography 06/27/2024 3:39 PM EST Impressions 06/27/2024 3:43 PM EST No mammographic evidence of malignancy. BIRADS: BIRADS - CATEGORY 1 Negative, no evidence of malignancy. Normal interval follow-up is recommended in 12 months. OVERALL ASSESSMENT - NEGATIVE A letter of notification will be sent to the patient regarding the results. [employer] recommends annual mammograms for women 40 years and older. Performing Facility: [facility] [place] [address] Narrative 06/27/2024 3:43 PM EST EXAMINATION: SCREENING DIGITAL BILATERAL MAMMOGRAM WITH TOMOSYNTHESIS 06/25/2024 TECHNIQUE: Screening mammography of the bilateral breasts was performed with tomosynthesis. 2D standard and 3D tomosynthesis combination imaging performed through both breasts in the MLO and CC projection. Computer aided detection was utilized in the interpretation of this exam. COMPARISON: [id number] HISTORY: Screening. FINDINGS: There are scattered areas of fibroglandular density. There is no new dominant mass, suspicious microcalcification, or area of architectural distortion. us Cindy Plata MD IMG MAMMOGRAPHY ORDERABLES Fin al Result from Last 3 Months or Most Recently Relevant to Health Maintenance Insurance [facility] MED[facility] [id number] [id number] Care Teams Remote Sensing Technologist Relationship Specialty [place] [address] [address] [place] [address] PCP - General Family Medicine 07/28/18
--- OUTSIDE RECORDS SUMMARY | 2025-05-03 13:18 | XMS_ITS | Clinical Summary ---
Author Organization [facility] Address [address] [place] [id number] Care Team Providers Care Process Development Manager Name Role Phone Alexis Rubin MD Primary Care Provider [phone] Dakotah Carter MD Unavailable Unavailable Unruly Hendrix MD Unavailable Allergies Active Allergy Reactions Criticality Noted Date Comments Cephalosporins 10/18/2019 Rosuvastatin 05/20/2020 Nausea, body aches Ezetimibe 10/20/2020 Atorvastatin 05/20/2020 Nausea, body aches Penicillins 10/18/2019 Pravastatin 10/14/2020 Nausea and severe body aches Diazepam 10/18/2019 Elevated heart rate Medications venlafaxine (EFFEXOR-XR) 75 mg Capsule, Sust. Release 24 hr Take 75 mg by mouth daily (with breakfast). Active levothyroxine (SYNTHROID) 75 mcg tablet Take 75 mcg by mouth daily at 10 o'clock PM. Active busPIRone (BUSPAR) 5 mg tablet Take 1 Tablet by mouth 3 times daily as needed. 09/24/2022 Active Cholecalciferol, Vitamin D3, 25 mcg (1,000 unit) Capsule Take 5,000 Units by mouth. Active ezetimibe (ZETIA) 10 mg Tablet Take 10 mg by mouth. 04/26/2023 Active rosuvastatin (CRESTOR) 5 mg Tablet Take 1 Tablet by mouth 2 times weekly. 52 Tablet 1 01/31/2024 Active rivastigmine (Exelon) 9.5 mg/24 hour Patch 24 hr Apply 1 Patch to skin daily. 06/25/2024 Active metoprolol succinate (TOPROL) 50 mg Tablet Sustained Release 24 hr Take 1 Tablet (50 mg) by mouth daily. 90 Tablet 3 11/15/2024 Active Active Problems Problem Noted Date Diagnosed Date Family history of ischemic heart disease 021 Mixed hyperlipidemia 09/08/2020 Medication intolerance: Atorvastatin, Rosuvastat in 09/08/2020 Essential hypertension 10/18/2019 Heart palpitations 10/18/2019 Family History Medical History Relation Name Comments No Known Problems Brother Heart Disease Father Javier Heart Problems Father Javier High Blood Pressure Father Javier High Cholesterol Father Javier Cancer Mother Nguyen High Cholesterol Mother Nguyen Relation Name Status Comments Brother Alive Father Javier Mother Nguyen Sister Alive Social History Tobacco Use Types Packs/Day Years Used Date Smoking Tobacco: Former Cigarettes 0.5 2.1 0 08/19/1976 - 09/17/1978 Passive Smoke Exposure: Past Smokeless Tobacco: Never Tobacco Cessation:Counseling Given: Not Answered Comments:n/a Alcohol Use Standard Drinks/Week Comments Never 0 (1 standard drink = 0.6 oz pur e alcohol) AUDIT-C Answer Date Recorded Frequency of Alcohol Consumption Never 10/18/2019 Average Number of Drinks Not on file 020 Frequency of Binge Drinking Not on file 12/2019 Comments Unknown Sex and Gender Information Value Date Recorded Sex Assigned at Not on file Legal Sex Female 5:47 PM EST Gender Identity Not on file Sexual Orientation Not on file Last Filed Vital Signs Vital Sign Reading Time Taken Comments Blood Pressure 140/78 10/19/2024 10:12 AM EST Pulse 69 10/19/2024 10:12 AM EST Temperature - - Respiratory Rate 16 10/19/2024 10:12 AM EST Oxygen Saturation - - Inhaled Oxygen Concentration - - Weight 62.1 kg (137 lb) 10/19/2024 10:12 AM EST Height 156.2 cm (5' 1.5 ) 10/19/2024 10:12 AM ES T Body Mass Index 25.47 10/19/2024 10:12 AM EST Plan of Treatment Upcoming Encounters Date Type Department Care Team (Late st Contact Info) Description 10/21/2025 10:00 AM EDT Appointment [facility], [address] [place] [phone] Unruly Hendrix MD [address] [facility] [place] [address] Health Maintenance Due Date Last Done Comments Cologuard 1958 Colonoscopy 1958 Colorectal Cancer Screening 1958 FIT 1958 Hepatitis C Virus (HCV) Screening 11/30/1979 Pneumococcal Vaccine: 50+ Ye ars (1 of 1 - PCV) 2008 Zoster-RZV(Shingrix) (1 of 2) 2008 Fall Risk Assessment 11/30/2023 Advance Care Planning 08/15/2024 BMI Counseling 08/15/2024 Depression Screening 08/15/2024 COVID-19 Vaccine (4 - 2024-2 6 season) 2025 07/15/2021, 11/13/2020, 10/08/2020 Influenza Vaccination (#1) 04/15/202505/29, 06/06/2023, 06/23/2020 Lipid Monitoring 05/07/2025 05/07/2024, , 11/19/2022, Additional history exists Breast Cancer Screening 06/25/2026 06/25/20 24, 06/25/2024, 02/02/2023, Additional history exists Osteoporosis Screening 06/22/2028 06/22/2023, 2022 Tetanus Vaccination (Every 1 0 Years) 08/28/2030 08/28/2020 RSV Vaccines (1 - 1-dose 75+ series) 2033 Lipid Screening Discontinued 05/07/2024, 04/16, 11/19/2022, Additional history exists Influenza Vaccination (Yearly) Discontinued 1 , 06/06/2023, 06/23/2020 Procedures Procedure Name Priority Date/Time Associated Diagnosis Comments LIPID PROFILE Routine 05/07/2024 9:18 AM EDT from Last 3 Months or Most Recently Relevant to Health Maintenance Results * LIPID PROFILE (05/07/2024 9:18 AM EDT) Triglycerides 255 mg/dL [facility] Cholesterol 193 mg/dL [facility] LDL Calculated 101 mg/dL [facility] HDL 49 [facility] Plasma us Historical Provider CHEMISTRY ORDERABLES Final R esult [facility] from Last 3 Months or Most Recently Relevant to Health Maintenance Insurance [employer] MEDICARE Member Subscriber Plan / Payer (Ef fective 2024-Present) Name:DUNG BORREGOJACOB Green Relation to Subscriber:Self Name:Borrego Aminata T Payer ID:[id number] (NAIC) Type:HMO Address: [place] [phone] Care Teams Process Development Manager Relationship Specialty Start [place] [address] [place] [phone] PCP - General Family Medicine 10/18/19 [place] [address] [place] [address] Interventional Cardiology 09/26/20 Unruly Hendrix MD [address] [place] [address] Cardiology 05/06/21
== END 2025-05-02 23:59 | disposition home or self-care (01) ==
LOC: LAB.DROPOF 05-03 13:16
PROVIDERS: PCP Family Medicine; Visit Provider Family Medicine
DX: E03.9 Hypothyroidism, unspecified (principal); Z11.59 Encounter for screening for other viral diseases; I10 Essential (primary) hypertension; E78.5 Hyperlipidemia, unspecified
CPT/HCPCS: 80053; 80061; 84443; 85025; 86803; 87340; 87389